=== PATIENT | female | born 1980 | race Caucasian/White ===

== ENCOUNTER 2020-05-12 07:25 | Emergency (ER) | payer OTHER, SELFPAY ==
--- NOTE | ~2020-05-12 | NM_ITS ---
EXAMINATION: NM hepatobiliary w pharm EXAM DATE: 05/12/2020 13:50 INDICATION: Epigastric abdominal pain. TECHNIQUE: 3.5 mCi Tc-99m mebrofenin (Choletec) was administered intravenously. Scintigraphic images of the abdomen were obtained for one hour. At the 1 hour time point, 1.4 mcg sincalide (Kinevac) was administered by slow intravenous infusion, and imaging was continued for 30 minutes. Gallbladder eje ction fraction was calculated by the technologist. Correlation is made to right upper quadrant sonogr am same day. FINDINGS: There is normal clearance of radiotracer from the blood pool. There is homogeneous tracer u ptake by the liver. Activity progresses to the gallbladder and bowel. The gallbladder ejection fract ion (GBEF) is 16 % (most patients with gallbladder dysfunction have GBEF < 35%, but there is overlap with the normal range of 10-90%). IMPRESSION: Gallbladder ejection fraction 16%, which may indicate some component of gallbladder dysf unction and/or chronic cholecystitis. Reviewed, dictated and finalized at location A. ER UP IMPRESSION: Gallbladder ejection fraction 16%, which may indicate some compone nt of gallbladder dysfunction and/or chronic cholecystitis.
--- NOTE | ~2020-05-12 | US_ITS ---
EXAMINATION: US right upper quadrant DATE: 05/12/2020 09:00 INDICATION: Epigastric pain TECHNIQUE: Multiple grayscale and Doppler ultrasound images of the abdomen were obtained. COMPARISON: None FINDINGS: The pancreatic head and body are normal in appearance. The pancreatic tail is not visualized. Visual ized portion of the proximal aorta and inferior vena cava are normal. Liver has normal echogenicity a nd contour, with a smooth surface. No liver lesion identified. No intrahepatic biliary duct dilation suspected. Portal venous flow was seen in the hepatopetal, normal direction and has normal Doppler wa veform. The gallbladder is normal in appearance. There is no cholelithiasis. The common bile duct me asures 2 mm, which is normal. Sonographic Reza sign was reported as positive by the pension examiner. IMPRESSION: 1. Positive sonographic Reza sign. Otherwise normal right upper quadrant ultrasound with normal-madyson earing gallbladder and no cholelithiasis. If there is continued clinical concern for acute cholecysti tis could consider HIDA scan for further evaluation. Reviewed, dictated and finalized at location B. URE DESIGNER IMPRESSION: 1. Positive sonographic Reza sign. Otherwise normal right upper quadrant ultr asound with normal-appearing gallbladder and no cholelithiasis. If there is con tinued clinical concern for acute cholecystitis could consider HIDA scan for fu rther evaluation.
[2020-05-12 07:28] VITALS: BP 117/74; PULSE 97; RESP 16; TEMP 36.6; O2SAT 97
--- NOTE | 2020-05-12 07:34 | PC.NURSE ---
pt requests that she does not receive narcotics due to past hx drug abuse. pt has been drug free for 17 months.
--- NOTE | 2020-05-12 08:10 | ED.ABDPAIN ---
HPI - Abdominal Pain General Chief Complaint: Abdominal Pain Stated Complaint: ruq abd pain 3 days Time Seen by Provider: 05/12/20 07:32 Source: patient Mode of arrival: ambulatory Limitations: no limitations History of Present Illness HPI narrative: This patient is a 39 year old female who presents for evaluation of epigastric abdominal pain. She states 3 years ago she was told she needed to have her gallbladder removed. She states she hasn't had any pain for a while, but her pain returned 2 weeks ago. It was initially intermittent but her pain has been constant for 3 days. She describes pain as epigastric that radiates to her back. Her pain is worse with eating and drinking. She denies fever, chills, vomiting or diarrhea. Her last BM was yesterday and she reports it is normal. Related Data Home Medications Medication Instructions Recorded Confirmed famotidine 20 mg PO DAILY 05/12/20 Allergies Allergy/AdvReac Type Severity Reaction Status Date / Time No Known Allergies Allergy Verified 05/12/20 07:31 Review of Systems Review of Systems: All systems reviewed & are unremarkable except as noted in HPI and below PMFSH Past Medical History Medical History (Updated 05/12/20 @ 14:17 by Zeenat Ferrer MD) Gallbladder disease Surgical History Surgical History (Updated 05/12/20 @ 08:13 by Zeenat Ferrer MD) H/O tubal ligation Social History Social History (Updated 05/12/20 @ 08:13 by Zeenat Ferrer MD) Smoking packs per day: 1 Smoking cigarettes per day: 20.0 Smoking status: Current every day smoker Substance use: former Substance use type: former substance user and IV drugs Last use: 17months ago Gender identity (if verbalized by the patient): Female Exam Narrative: Exam Narrative: GENERAL: Well-appearing, well-nourished, and in no acute distress. HEAD: Normocephalic, atraumatic EYES: PERRLA and EOMI, conjunctiva clear without discharge THROAT:Mucous membranes moist, Oropharynx normal without erythema, exudate, peritonsillar swelling or fluctuance NECK: Supple, without lymphadenopathy or mass RESPIRATORY: No respiratory distress, Airway patent, Respirations non-labored, Clear to auscultation without rales, rhonchi or wheeze HEART: Regular rate and rhythm. No murmur heard. Normal peripheral pulses. ABDOMEN: Soft, epigastic, nondistended, normal active bowel sounds. No masses. No rebound or guarding, No organomegaly. EXTREMITIES: No edema, normal strength with full range of motion. SKIN: Warm, dry, normal color without rash NEURO: Alert and oriented x3. CN 2-12 grossly intact. No focal deficits. PSYCH: Normal mood and affect. Course Reevaluation(s) Reevaluation #1: Patient states she feels better. I discussed blood work was unremarkable but ua was abnormal. I Also discussed HIDA scan shows possible chronic cholecystitis. She was given return information and follow up instructions. Date: 05/12/20 Time: 14:14 Vital Signs Vital signs: Vital Signs Temperature 97.9 F 05/12/20 07:28 Pulse Rate 97 05/12/20 07:28 Respiratory Rate 16 05/12/20 07:28 Blood Pressure 117/74 05/12/20 07:28 Pulse Oximetry 97 05/12/20 07:28 Temperature 97.9 F 05/12/20 07:28 Pulse Rate 97 05/12/20 07:28 Respiratory Rate 16 05/12/20 07:28 Blood Pressure 117/74 05/12/20 07:28 Pulse Oximetry 97 05/12/20 07:28 MDM - Abdominal Pain Lab Data Attestation: I reviewed the patient's lab results. Result diagrams: 05/12/20 09:20 05/12/20 09:20 Labs: Lab Results 05/12/20 05/12/20 05/12/20 Range/Units 08:02 09:20 09:20 WBC 9.3 (4.5-10.0) K/mm3 RBC 4.68 (4.2-5.4) M/mm3 Hgb 15.3 H (12.0-15.0) g/dL Hct 43.7 (37.0-47.0) % MCV 93.4 (80-100) fl MCH 32.7 (26-34) pg MCHC 35.0 (32-36) g/dl RDW 13.0 (11.5-14.5) % Plt Count 342 (150-375) k/mm3 MPV 9.6 (7.4-10.4) fl Immature Gran %
[2020-05-12 08:17] LABS: Add Urine Microscopic? YES; Appearance Urine Cloudy (Clear); Bilirubin Urine Negative (Negative); Blood Urine Negative (Negative); Color Urine Yellow (Yellow); Glucose Urine UA Negative (Negative); Ketones Urine Negative (Negative); Leukocyte Esterase Ur 2+ LEU/UL (Negative); Mucus Urine Few /lpf; Nitrate Urine Negative (Negative); Protein Urine 1+ mg/dL (Negative); Specific Grav Ur 1.023 (1.001-1.035); Squamous Epithelial Cell Urine Many /hpf (Few); Transitional Epi Cells Urine Rare /hpf (None Seen); Urobilinogen Urine Negative mg/dL (<2.0); WBC Urine 0-3 /hpf
[2020-05-12 09:30] LABS: Basophils Absolute Auto 0.1 K/mm3 (0.0-0.1); Basophils Percent Auto 0.6 % (0.2-1.2); Eosinophils Percent Auto 0.4 % (0-4.4); Hematocrit 43.7 % (37.0-47.0); Hemoglobin 15.3 g/dL (12.0-15.0); Immature Granulocyte Absolute 0.04 K/mm3 (0.00-0.031); Immature Granulocyte Percent A 0.4 % (0-0.5); Lymphocytes Absolute Auto 1.39 K/mm3 (0.9-3.2); Lymphocytes Percent Auto 14.9 % (18.3-44.2); Mean Corpuscular Hemoglobin 32.7 pg (26-34); Mean Corpuscular Volume 93.4 fl (80-100); Mean Platelet Volume 9.6 fl (7.4-10.4); Monocytes Absolute Auto 0.6 K/mm3 (0.1-0.6); Monocytes Percent Auto 5.9 % (2.6-8.5); Neutrophils Absolute Auto 7.3 K/mm3 (1.3-6.7); Neutrophils Percent Auto 77.8 % (45.5-73.1); Platelet Count Result 342 k/mm3 (150-375); Red Blood Count 4.68 M/mm3 (4.2-5.4); White Blood Count 9.3 K/mm3 (4.5-10.0)
[2020-05-12 09:53] LABS: Alanine Aminotransferase 17 U/L (4-35); Albumin Level 4.5 g/dL (3.5-5.1); Alkaline Phosphatase 67 U/L (38-126); Anion Gap 6 mmol/L (8-16); Aspartate Amino Transferase 28 U/L (14-36); Bilirubin,Total 0.5 mg/dL (0.2-1.3); Blood Urea Nitrogen 17 mg/dL (7-17); Carbon Dioxide 23 mmol/L (22-30); Chloride 108 mmol/L (98-107); Estimated CRCL calculation 72 ml/min; Estimated Glomerular Filt Rate > 60; Glucose 86 mg/dL (65-105); Lipase 70 U/L (23-300); Potassium 3.8 mmol/L (3.4-5.0); Sodium 137 mmol/L (137-145)
[2020-05-12] MEDS: ONDANSETRON INJ 4 MG/2 ML VIAL IV PUSH (10:12)
== END 2020-05-12 14:27 | disposition home or self-care (01) ==
PROVIDERS: Emergency Provider General Practice
DX: R10.13 Epigastric pain (principal); F17.210 Nicotine dependence, cigarettes, uncomplicated
CPT/HCPCS: 36415; 76705; 78227; 80053; 81001; 81025; 83690; 85025; 96365; 96375; 99284; A9537; J0131; J2405; J2805

== ENCOUNTER → 2020-05-20 00:28 | Outpatient (CLI) | payer OTHER, SELFPAY ==
[2020-05-20 20:38] LABS: SARS-CoV-2 RNA PCR Negative
== END ==
PROVIDERS: Visit Provider Surgery
DX: Z01.812 Encounter for preprocedural laboratory examination (principal); Z20.822 Contact with and (suspected) exposure to COVID-19
CPT/HCPCS: C9803; U0003; U0005

== ENCOUNTER 2020-05-22 13:56 | Outpatient (CLI) | payer OTHER, SELFPAY ==
--- NOTE | 2020-05-22 13:57 | ECG_ITS ---
Measurements Intervals [place] Rate: 67 P: 57 MO: 141 QRS: 28 QRSD: 91 T: 38 QT: 380 QTc: 403 Interpretive Statements SINUS RHYTHM DELAYED PRECORDIAL R/S TRANSITION BORDERLINE ECG Electronically Signed On 05-22-2020 14:10:24 MOTION PICTURE NARRATOR by Lorne Little D.O.
[2020-05-22 15:13] LABS: Amylase 80 U/L (30-110)
== END 2020-05-22 13:57 | disposition home or self-care (01) ==
LOC: ANHSURGERY 13:57
PROVIDERS: Visit Provider Surgery
DX: Z20.818 Contact with and (suspected) exposure to other bacterial communicable diseases (principal); K81.1 Chronic cholecystitis
CPT/HCPCS: 36415; 82150; 86850; 86900; 86901; 93005

== ENCOUNTER 2020-05-24 00:50 | Day surgery (SDC) | payer OTHER, SELFPAY ==
[2020-05-19 14:43] VITALS: BMI 25.7
--- NOTE | 2020-05-23 12:15 | WPDANESEPPF ---
Anes - Initial Pre Proc Eval Procedure: Operation Date: 05/24/20 07:30 Proposed Procedures p Laparoscopic Cholecystectomy - Imelda Castrejon MD Date/Time: 05/23/20 12:15 Surgeon: Imelda Castrejon MD Pre Op Diagnosis: Chronic Cholecystitis Patient Data Age: 39 Gender: F Height: 1.63 m Weight: 68 kg Allergies Allergy/AdvReac Type Severity Reaction Status Date / Time No Known Allergies Allergy Verified 05/24/20 06:35 Home Medications Medication Instructions Recorded Confirmed Type dicyclomine 10 mg PO QID PRN #10 cap 05/12/20 05/19/20 Rx pantoprazole [Protonix] 40 mg PO QAM 28 Days #28 tablet 05/12/20 05/19/20 Rx jttbonvsiofy-jhc-[id number]-FA-vit K 1 tablet PO DAILY 05/19/20 05/19/20 History [Adults Multivitamin] Patient hx anesthesia problems: none Family hx anesthesia problems: none PMFSH Past Medical History Medical History Gallbladder disease Surgical History Surgical History H/O tubal ligation Social History Social History Smoking packs per day: 0.5 Smoking cigarettes per day: 10.0 Years smoked: 20 Smoking pack-years: 10.00 Smoking status: Current every day smoker Tobacco type: cigarettes Substance use: former Substance use type: former substance user and IV drugs Last use: 17months ago Living arrangements: with friend(s) Gender identity (if verbalized by the patient): Female Spiritual care concerns: No Anes - Eval Final PreProcedure Day of Procedure 05/23/20 12:15 Patient weight: overweight Heart: regular rate and rhythm Lungs: clear to auscultation and normal air movement Airway: Mallampati scale class II Neurological: alert and oriented Last oral intake: >/= 8 hours ASA classification: II Emergent: no Anesthetic plan: proceed Anesthesia type and monitoring: general ETT Informed Consent: The patient's anesthetic plan and its attendant risks and benefits were discussed with the patient/family/POA. Questions were solicited and answers provided to the satisfaction of the patient/family/POA.
[2020-05-24] VITALS (10 sets, daily range): BP systolic 91–108; BP diastolic 51–68; PULSE 50–77; RESP 14–20; TEMP 36.3–36.4; O2SAT 98–100
[2020-05-24] MEDS: ACETAMINOPHEN 500 MG TABLET 1000 MG PO (06:44)
[2020-05-24] MEDS: LACTATED RINGERS 1,000 ML 30 ML IV CONT ×2 (07:04→08:27)
[2020-05-24] MEDS: KETOROLAC 15 MG/ML VIAL (*BKC) IV PUSH (07:04)
--- NOTE | 2020-05-24 07:20 | WPDHPUPDATE1 ---
History and Physical Update Update Date/Time: 05/24/20 07:20 History and Physical has been reviewed, including an updated exam of the patient. There are NO changes in the patient's condition. Risks, benefits, and alternatives have been discussed and questions answered. Patient agrees to proceed with procedure.
[2020-05-24] MEDS: ceFAZolin 2 GM/D5W 50 ML 2 GM/50 ML BAG IVPB (07:26)
[2020-05-24] MEDS: BUPIVACAINE/EPINEPHRINE 0.5% 30 ML VIAL INFILTRATE (08:01)
--- NOTE | 2020-05-24 08:43 | PM.PROC ---
Procedure Note - Detailed Date of procedure: 05/24/20 Pre-op diagnosis: Chronic Cholecystitis Post-op diagnosis: same Procedure performed: laparoscopic cholecystectomy Description of procedure: The patient was taken to the operating room placed in the supine position. After adequate induction of general anesthesia, the patient was prepped and draped in normal sterile fashion. A time-out was then performed to verify the patient's identity as well as the procedure being performed. I then made a 5 mm incision in the infraumbilical region. Through this, a Veress needle was placed into the peritoneal cavity and CO2 gas was then insufflated. After adequate pneumoperitoneum was achieved, the Veress needle was removed and a 5 mm trocar was placed through this incision. I then placed the laparoscope through this trocar site and under direct visualization placed a further 12 mm subxiphoid port as well as 2 additional 5 mm ports in the right upper abdomen. The gallbladder was then identified and was noted to be slightly inflamed. I was able to place a grasper at the dome of the gallbladder and this was retracted anterior and cephalad up over the liver. A 2nd retractor was then placed at the infundibulum and retracted laterally, this allowed visualization of the triangle of Calot. I then was able to visualize the cystic duct in its entirety from its proximal insertion into the gallbladder, to its distal junction with the common hepatic/common bile duct junction. At this point, I carefully skeletonized the proximal cystic duct with the [place] dissector. I then clipped and transected the proximal cystic duct. Next I visualized the cystic artery. Again the artery was skeletonized, clipped, and transected. I then used the Bovie cautery to take down the peritoneal attachments of the gallbladder off the liver bed. Once the gallbladder specimen was completely detached, an endo-pouch was placed through the 12 mm port site. I then placed the gallbladder specimen into the Endo pouch and removed the endo-pouch from the 12 mm port site. The specimen will now be sent to pathology for further review. I then copiously irrigated the right upper quadrant. Hemostasis was noted in the liver bed, the clips were noted to be in good position on both the cystic duct stump and the cystic artery stump. No other pathology was noted in the right upper quadrant. I then moved the laparoscope to the subxiphoid port. No iatrogenic injury or other pathology was noted in the lower abdomen. At this point, the abdomen was desufflated and all ports removed. The fascia of the 12 mm subxiphoid port was closed with a 0 Vicryl figure of 8 suture. All port sites were then closed with 4.O Monocryl subcuticular sutures. Dermabond was placed on each incision. The patient tolerated the procedure well, was extubated in the operating room postoperative and will be transferred to the recovery room in stable condition. Implants: none Anesthesia: GETA Surgeon: Imelda Castrejon MD Estimated blood loss (mL): 10 Drains: No Packing: No Pathology: yes Complications: No immediate complications Condition: stable Disposition: PACU Findings: chronic cholecystitis
[2020-05-24] MEDS: ONDANSETRON INJ 4 MG/2 ML VIAL IV PUSH (08:45)
[2020-05-24] MEDS: diphenhydrAMINE HCl INJ 50 MG/ML VIAL 25 MG IV PUSH (08:52)
[2020-05-24] MEDS: HYDROmorphone HCL INJ (*CRX) 1 MG/ML SYR 0.25 MG IV PUSH ×2 (09:03→09:08)
[2020-05-24] MEDS: traMADol HCL (*CRX) 50 MG TABLET PO (10:14)
--- NOTE | 2020-05-24 11:08 | SUR.PHASEII ---
Patient is all ready to go. She is just waiting on her ride to get here.
== END 2020-05-24 11:15 | disposition home or self-care (01) ==
PROVIDERS: Visit Provider Surgery
PROC: 0FT44ZZ Resection of Gallbladder, Percutaneous Endoscopic Approach (ICD-10-PCS; CPT 47562; principal; 2020-05-24 07:30)
DX: K81.1 Chronic cholecystitis (principal); F17.210 Nicotine dependence, cigarettes, uncomplicated
CPT/HCPCS: 47562; 88304; A9270; J0690; J1100; J1170; J1200; J1885; J2250; J2405; J2704; J2710; J3010; J7030; J7120

== ENCOUNTER 2022-05-13 14:10 | Emergency (ER) | payer OTHER, SELFPAY ==
--- NOTE | 2022-05-13 14:13 | ED.URI ---
HPI - URI/Sore Throat General Chief Complaint: Upper Respiratory Infection Stated Complaint: cold /throat/ ears Time Seen by Provider: 05/13/22 14:13 Source: patient and RN notes reviewed History of Present Illness HPI Narrative: Patient is a 41-year-old female who presents to urgent care with complaints of bilateral otalgia, sore throat, congestion. Patient states that it started 2 days ago and she has not taken anything [id number] for her symptoms. Denies any ill exposures. States that her grandma has been given a week to live and she is concerned about attending a and being ?contagious?. Denies any fevers, nausea or vomiting. Denies any exposure to known illness. No other acute complaints. No acute distress noted. Patient aware of the plan of care. Some parts of this dictation were generated by voice recognition software and may contain typographical and/or grammatical inaccuracies. Related Data Allergies Allergy/AdvReac Type Severity Reaction Status Date / Time No Known Allergies Allergy Verified 06/07/20 09:34 Review of Systems Review of Systems: CONSTITUTIONAL: Denies fever, chills, or sweats. EYES: Denies visual changes, redness, or discharge. ENT: Reports rhinorrhea, congestion, bilateral otalgia sore throat CARDIOVASCULAR: Denies chest pain, palpitations, or edema. RESPIRATORY: Denies cough or dyspnea. GASTROINTESTINAL: Denies abdominal pain, nausea, vomiting, or diarrhea. GENITOURINARY: Denies dysuria or hematuria. SKIN: Denies rash or itching. MUSCULOSKELETAL: Denies back pain, joint pain, or myalgia. NEUROLOGIC: Denies headache, numbness, or weakness. All other systems reviewed are negative, except as documented in HPI. [facility] Past Medical History Medical History Gallbladder disease History of illicit drug use Surgical History Surgical History H/O tubal ligation Hx laparoscopic cholecystectomy 05/24/20 Social History Social History Smoking packs per day: 0.5 Smoking cigarettes per day: 10.0 Years smoked: 20 Smoking pack-years: 10.00 Smoking status: Current every day smoker Tobacco type: cigarettes Substance use: former Substance use type: former substance user and IV drugs Last use: 17months ago Living arrangements: with friend(s) Gender identity (if verbalized by the patient): Female Spiritual care concerns: No Comments At the time of my signature, I reviewed and agree with the nursing past medical, surgical, social, and family history. There is no relevant family history pertinent to the patient complaint. Exam Narrative: GENERAL: This is a well-nourished, well-developed patient, in no apparent distress. HEAD: normocephalic, atraumatic. EYES: PERRL. Sclera clear/white. Vision is grossly intact. EARS: External ears normal, auditory canals clear and without drainage, TMs normal without perforation. Hearing grossly intact. NOSE: External nose normal with no obvious nasal discharge, nares without redness, clear rhinorrhea. THROAT: Mucous membranes moist, mild erythema posterior pharynx without exudate or ulceration-weighted NECK: Neck supple, CARDIOVASCULAR: Regular rate and rhythm RESPIRATORY: Clear to auscultation. Breath sounds equal bilaterally. No wheezes, rales, or rhonchi. GASTROINTESTINAL: Abdomen soft, non-tender, nondistended. Bowel sounds are active. No hepato-splenomegaly, or palpable masses. No guarding. SKIN: warm, intact with no suspicious lesions or rash, good texture and turgor. NEURO: awake, alert, and oriented to person, place and time. There were no obvious focal neurologic abnormalities. EXTREMITIES: No clubbing, cyanosis, or edema. Course Course Level of Care: Express Care Visit Vital Signs Vital signs: Vital Signs Temperature 98.2 F 05/13/22 14:16 Pulse Rate 83 05/13/22 14:16 Respiratory Rate 16
[2022-05-13 14:16] VITALS: BP 117/62; PULSE 83; RESP 16; TEMP 36.8; O2SAT 98
== END 2022-05-13 14:57 | disposition home or self-care (01) ==
PROVIDERS: Emergency Provider Nurse Practitioner Family
DX: B34.9 Viral infection, unspecified (principal); J02.9 Acute pharyngitis, unspecified; F17.210 Nicotine dependence, cigarettes, uncomplicated
CPT/HCPCS: 87081; 87880; 99213; G0463

== ENCOUNTER 2022-07-24 10:41 | Emergency (ER) | payer OTHER, SELFPAY ==
[2022-07-24 10:45] VITALS: BP 138/64; PULSE 77; RESP 16; TEMP 37; O2SAT 98
--- NOTE | 2022-07-24 11:03 | ED.DENTAL ---
HPI - Dental/Oral General Chief complaint: Dental/Oral Stated complaint: dental pain Time Seen by Provider: 07/24/22 11:03 Source: patient, RN notes reviewed and old records reviewed Mode of arrival: ambulatory Limitations: no limitations History of Present Illness HPI Narrative: 41 year old female who presents to [facility] care with complaints of dental pain to tooth right lower molar for the past 3 days. Patient has noted hole in the middle of the #29 molar with no swelling of face or any trismus noted. Patient reports that she has been to [facility] for care in past and unhappy with care received,does not have present dentist,list given. Patient reports that she has been taking Tylenol for her discomfort with minimal pain relief, no acute gum redness or abscess noted. MD Complaint: tooth pain Location: Tooth # (29) Onset (ago): day(s) (3) Severity: moderate Severity scale (1-10): 6 Treatment prior to arrival: oral analgesic (tylenol) Related Data Home Medications Medication Instructions Recorded Confirmed meclizine 25 mg tablet 25 mg PO TID PRN Dizziness 07/24/22 07/24/22 Allergies Allergy/AdvReac Type Severity Reaction Status Date / Time No Known Allergies Allergy Verified 07/24/22 11:01 Review of Systems Review of Systems: CONSTITUTIONAL: Denies fever, chills, or sweats. EYES: Denies visual changes, redness, or discharge. ENT: Denies rhinorrhea, congestion, sore throat, or otalgia.positive for dental pain to #29 tooth with hole in center of tooth noted. CARDIOVASCULAR: Denies chest pain, palpitations, or edema. RESPIRATORY: Denies cough or dyspnea. GASTROINTESTINAL: Denies abdominal pain, nausea, vomiting, or diarrhea. GENITOURINARY: Denies dysuria or hematuria. SKIN: Denies rash or itching. MUSCULOSKELETAL: Denies back pain, joint pain, or myalgia. NEUROLOGIC: Denies headache, numbness, or weakness. PSYCHIATRIC: Denies anxiety or depression. All systems reviewed & are unremarkable except as noted in HPI and below PMFSH Past Medical History Medical History Gallbladder disease History of dental problems History of illicit drug use Surgical History Surgical History H/O tubal ligation Hx laparoscopic cholecystectomy 2/10/21 Social History Social History Smoking packs per day: 0.5 Smoking cigarettes per day: 10.0 Years smoked: 20 Smoking pack-years: 10.00 Smoking status: Current every day smoker Tobacco type: cigarettes Substance use: former Substance use type: former substance user and IV drugs Last use: 17months ago Living arrangements: with friend(s) Gender identity (if verbalized by the patient): Female Spiritual care concerns: No Comments At time of signature, agree with nursing past medical, surgical, social and family history. There is no relevant family history pertinent to the presenting complaint Exam Narrative: GENERAL: Well-appearing, well-nourished, and in no acute distress. HEAD: Normocephalic, atraumatic. EYES: PERRLA and EOMI. ENT: Nares clear, no rhinorrhea or epistaxis. Mucous membranes moist. Missing teeth, broken teeth, caries #29 tooth has hole in center of tooth.no redness of gum or visible abscess noted. No trismus or any Alex angina noted, no difficulty with swallowing or any breathing difficulty CHEST: Clear to auscultation. No respiratory distress. SAO2 98% on room air HEART: Regular rate and rhythm. No murmur heard. Normal peripheral pulses. SKIN: Warm, dry, no rash. NEURO: No focal deficits. Alert and oriented x3. Course Course Emergency Course: Patient is aware of diagnosis, understands and agrees to treatment plan. Anticipatory guidance given. Patient agrees to follow-up as directed and is aware of reasons to seek care at the emergency department. Portions of this record may have been created with voice recognition software
== END 2022-07-24 11:20 | disposition home or self-care (01) ==
PROVIDERS: Emergency Provider Registered Nurse
DX: K08.89 Other specified disorders of teeth and supporting structures (principal); F17.210 Nicotine dependence, cigarettes, uncomplicated
CPT/HCPCS: 99213; G0463

== ENCOUNTER 2024-01-21 11:37 | Emergency (ER) | payer OTHER, SELFPAY ==
[2024-01-21 11:44] VITALS: BP 151/75; PULSE 109; RESP 20; TEMP 37.3; O2SAT 100
--- NOTE | 2024-01-21 11:54 | ED.ALLEREA ---
HPI - Allergic Reaction General Chief complaint: Allergic Reaction Stated complaint: allergice reaction Time Seen by Provider: 01/21/24 11:40 Source: patient and RN notes reviewed Mode of arrival: ambulatory Limitations: no limitations History of Present Illness HPI narrative: Patient presents today complaining of sudden-onset shortness of breath and rash when she woke up from a nap approximately 30 minutes prior to arrival. Denies allergy to anything known to her. She did take an [id number] allergy medication just prior to lying down for her nap, but she has had it in the past. She has had some cold symptoms over the past week that she has been treating. Related Data Home Medications Medication Instructions Recorded Confirmed meclizine 25 mg tablet 25 mg PO TID PRN Dizziness 07/24/22 07/24/22 Allergies Allergy/AdvReac Type Severity Reaction Status Date / Time No Known Allergies Allergy Verified 07/24/22 11:01 Review of Systems Review of Systems: CONSTITUTIONAL: Denies body aches, fever, chills, or sweats. EYES: Denies visual changes, redness, or discharge. ENT: Denies rhinorrhea, sore throat, or otalgia.+ congestion, hoarse voice CARDIOVASCULAR: Denies chest pain, palpitations, or edema. RESPIRATORY: Denies cough. + shortness of breath GASTROINTESTINAL: Denies abdominal pain, nausea, vomiting, or diarrhea. GENITOURINARY: Denies dysuria or hematuria. SKIN: + pruritic rash MUSCULOSKELETAL: Denies back pain, joint pain, or myalgia. NEUROLOGIC: Denies headache, numbness, tingling, or weakness. PSYCH: Denies depression or anxiety. [facility] Past Medical History Medical History Gallbladder disease History of dental problems History of illicit drug use Surgical History Surgical History H/O tubal ligation Hx laparoscopic cholecystectomy 05/24/20 Social History Social History Smoking packs per day: 0.5 Smoking cigarettes per day: 10.0 Years smoked: 20 Smoking pack-years: 10.00 Smoking status: Current every day smoker Tobacco type: cigarettes Substance use: former Substance use type: former substance user and IV drugs Last use: 17months ago Living arrangements: with friend(s) Gender identity (if verbalized by the patient): Female Spiritual care concerns: No Comments At time of signature, I have reviewed and agree with nursing past medical, surgical, social and family history unless otherwise noted. Please see nursing chart for further information. There is no relevant family history pertinent to the presenting complaint Exam Narrative: GENERAL: ill-appearing, well-nourished HEAD: Normocephalic, atraumatic. EYES: EOMI. PERRL. No redness or drainage. Conjunctivae normal. ENT: Mucous membranes pink and moist. Nares congested with rhinorrhea. TMs normal bilaterally. Throat normal. Uvula midline. Voice hoarse. No facial swelling appreciated. NECK: Normal AROM. Supple. No lymphadenopathy. CHEST: No respiratory distress. Coarse breath sounds throughout. HEART: Regular rhythm. Tachycardia. No murmur appreciated. Normal peripheral pulses. EXTREMITIES: Normal range of motion. No edema. SKIN: Warm, dry. Capillary refill normal. Normal skin turgor. +urticarial rash over trunk and legs NEURO: No focal deficits. Alert and oriented x3. Gait steady. PSYCH: Normal affect. No signs of depression or anxiety. Course Course Emergency Course: Patient was noted at the registration desk to have hoarse voice and shortness of breath and was brought back to exam room quickly for evaluation. Once hooked up to monitor/pulse ox and examined, she seemed to calm. Her voice hoarseness has resolved as well as her coarse lung sounds. Discussed that is it strongly recommended that she go to the ER via EMS for further treatment and evaluation. After discussing risk/justin
[2024-01-21] MEDS: dexAMETHasone SOD PHOS INJ 10 MG/ML 1 ML VIAL IM (11:58)
[2024-01-21] MEDS: diphenhydrAMINE HCl INJ 50 MG/ML VIAL IM (11:59)
--- NOTE | 2024-01-21 12:12 | PC.NURSE ---
1205 prior to meds pt is more calm and RR 24 and non labored. pt is no longer hoarse in speech. meds given, rash is still present all areas
[2024-01-21 12:34] VITALS: BP 126/72; PULSE 89; RESP 20; O2SAT 99
== END 2024-01-21 12:41 | disposition left against medical advice (07) ==
PROVIDERS: Emergency Provider Nurse Practitioner
DX: T78.40XA Allergy, unspecified, initial encounter (principal); F17.210 Nicotine dependence, cigarettes, uncomplicated
CPT/HCPCS: 96372; 99214; G0463; J1100; J1200